=== PATIENT | female | born 1985 | race Caucasian/White ===

== ENCOUNTER 2020-10-02 11:13 | Emergency (ER) | payer BC ==
[~2020-10-02] VITALS: Ht 162.6 cm; Wt 83.9 kg
[2020-10-02 14:15] LABS: URINE BILIRUBIN NEGATIVE (Negative); URINE BLOOD NEGATIVE (Negative); URINE CLARITY CLEAR; URINE COLOR YELLOW; URINE GLUCOSE-RANDOM* NEGATIVE (Negative); URINE KETONES NEGATIVE (Negative); URINE LEUKOCYTES-REFLEX NEGATIVE (Negative); URINE NITRITE-REFLEX NEGATIVE (Negative); URINE PROTEIN (DIPSTICK) NEGATIVE (Negative); URINE UROBILINOGEN 0.2 E.U./dl (0.2-1.0)
[2020-10-02] MEDS ORDERED: CIPRO500 M1 PO (15:10)
[2020-10-02] MEDS ORDERED: ANUSOL-HC30 GM TOP (15:10)
[2020-10-02] MEDS ORDERED: CLARITIN10 MG PO (15:38)
[2020-10-02 15:41] VITALS: BP 122/70
== END 2020-10-02 15:41 | disposition home or self-care (01) ==
LOC: ER 11:13
PROVIDERS: Emergency Medicine
DX: K60.2 Anal fissure, unspecified (principal); R19.7 Diarrhea, unspecified; Z79.899 Other long term (current) drug therapy